=== PATIENT | male | born 2000 | race Caucasian/White ===

== ENCOUNTER 2024-02-19 11:41 | Emergency (ER) | payer MEDICAID ==
[~2024-02-19] VITALS: Ht 172.7 cm; Wt 63.5 kg
== END 2024-02-19 13:25 | disposition home or self-care (01) ==
LOC: ED 11:41
DX: F19.10 Other psychoactive substance abuse, uncomplicated (principal); F15.10 Other stimulant abuse, uncomplicated; F17.200 Nicotine dependence, unspecified, uncomplicated